=== PATIENT | female | born 1970 | race Caucasian/White ===

== ENCOUNTER → 2019-08-05 | Outpatient (CLI) | payer OTHER | LOC: HYPER 08:41 | DX: N30.41 Irradiation cystitis with hematuria (principal); L59.8 Other specified disorders of the skin and subcutaneous tissue related to radiation; M87.88 Other osteonecrosis, other site; K58.9 Irritable bowel syndrome, unspecified; Z85.41 Personal history of malignant neoplasm of cervix uteri; Y84.2 Radiological procedure and radiotherapy as the cause of abnormal reaction of the patient, or of later complication, without mention of misadventure at the time of the procedure ==

== ENCOUNTER → 2019-08-06 | Outpatient (CLI) | payer OTHER | LOC: HYPER 15:35 | DX: L59.8 Other specified disorders of the skin and subcutaneous tissue related to radiation (principal); N30.41 Irradiation cystitis with hematuria; M87.88 Other osteonecrosis, other site; Z85.41 Personal history of malignant neoplasm of cervix uteri; Z85.89 Personal history of malignant neoplasm of other organs and systems; Y84.2 Radiological procedure and radiotherapy as the cause of abnormal reaction of the patient, or of later complication, without mention of misadventure at the time of the procedure ==

== ENCOUNTER → 2019-08-07 | Outpatient (CLI) | payer OTHER | LOC: HYPER 12:30 | DX: N30.41 Irradiation cystitis with hematuria (principal); L59.8 Other specified disorders of the skin and subcutaneous tissue related to radiation; M87.88 Other osteonecrosis, other site; J45.909 Unspecified asthma, uncomplicated; Z85.89 Personal history of malignant neoplasm of other organs and systems; Z85.41 Personal history of malignant neoplasm of cervix uteri ==

== ENCOUNTER → 2019-08-08 | Outpatient (CLI) | payer OTHER | LOC: HYPER 07:30 | DX: N30.41 Irradiation cystitis with hematuria (principal); L59.8 Other specified disorders of the skin and subcutaneous tissue related to radiation; M87.88 Other osteonecrosis, other site; J45.909 Unspecified asthma, uncomplicated; Z85.41 Personal history of malignant neoplasm of cervix uteri; Z85.89 Personal history of malignant neoplasm of other organs and systems ==

== ENCOUNTER → 2019-08-09 | Outpatient (CLI) | payer OTHER | LOC: HYPER 08:46 | DX: L59.8 Other specified disorders of the skin and subcutaneous tissue related to radiation (principal); N30.41 Irradiation cystitis with hematuria; M87.88 Other osteonecrosis, other site; K58.9 Irritable bowel syndrome, unspecified; Z85.41 Personal history of malignant neoplasm of cervix uteri; Y84.2 Radiological procedure and radiotherapy as the cause of abnormal reaction of the patient, or of later complication, without mention of misadventure at the time of the procedure ==

== ENCOUNTER → 2019-08-13 | Outpatient (CLI) | payer OTHER | LOC: HYPER 07:30 | DX: L59.8 Other specified disorders of the skin and subcutaneous tissue related to radiation (principal); N30.41 Irradiation cystitis with hematuria; Z85.41 Personal history of malignant neoplasm of cervix uteri; Z85.89 Personal history of malignant neoplasm of other organs and systems; Y84.2 Radiological procedure and radiotherapy as the cause of abnormal reaction of the patient, or of later complication, without mention of misadventure at the time of the procedure; M87.88 Other osteonecrosis, other site ==

== ENCOUNTER → 2019-08-14 | Outpatient (CLI) | payer OTHER | LOC: HYPER 15:57 | DX: L59.8 Other specified disorders of the skin and subcutaneous tissue related to radiation (principal); N30.41 Irradiation cystitis with hematuria; M87.88 Other osteonecrosis, other site; Z85.89 Personal history of malignant neoplasm of other organs and systems; Z85.41 Personal history of malignant neoplasm of cervix uteri; Y84.2 Radiological procedure and radiotherapy as the cause of abnormal reaction of the patient, or of later complication, without mention of misadventure at the time of the procedure ==

== ENCOUNTER → 2019-08-15 | Outpatient (CLI) | payer OTHER | LOC: HYPER 10:40 | DX: L59.8 Other specified disorders of the skin and subcutaneous tissue related to radiation (principal); N30.41 Irradiation cystitis with hematuria; M87.88 Other osteonecrosis, other site; Z85.89 Personal history of malignant neoplasm of other organs and systems; Z85.41 Personal history of malignant neoplasm of cervix uteri; Y84.2 Radiological procedure and radiotherapy as the cause of abnormal reaction of the patient, or of later complication, without mention of misadventure at the time of the procedure ==

== ENCOUNTER → 2019-08-16 | Outpatient (CLI) | payer OTHER | LOC: HYPER 08:25 | DX: L59.8 Other specified disorders of the skin and subcutaneous tissue related to radiation (principal); N30.41 Irradiation cystitis with hematuria; K58.9 Irritable bowel syndrome, unspecified; Z85.41 Personal history of malignant neoplasm of cervix uteri; Y84.2 Radiological procedure and radiotherapy as the cause of abnormal reaction of the patient, or of later complication, without mention of misadventure at the time of the procedure ==

== ENCOUNTER → 2019-08-20 | Outpatient (CLI) | payer OTHER | LOC: HYPER 08-19 09:22 | DX: L59.8 Other specified disorders of the skin and subcutaneous tissue related to radiation (principal); N30.41 Irradiation cystitis with hematuria; M87.88 Other osteonecrosis, other site; K58.9 Irritable bowel syndrome, unspecified; Z85.41 Personal history of malignant neoplasm of cervix uteri; Y84.2 Radiological procedure and radiotherapy as the cause of abnormal reaction of the patient, or of later complication, without mention of misadventure at the time of the procedure ==

== ENCOUNTER → 2019-08-21 | Outpatient (CLI) | payer OTHER | LOC: HYPER 11:11 | DX: L59.8 Other specified disorders of the skin and subcutaneous tissue related to radiation (principal); N30.41 Irradiation cystitis with hematuria; M87.88 Other osteonecrosis, other site; Z85.89 Personal history of malignant neoplasm of other organs and systems; Z85.41 Personal history of malignant neoplasm of cervix uteri; Y84.2 Radiological procedure and radiotherapy as the cause of abnormal reaction of the patient, or of later complication, without mention of misadventure at the time of the procedure ==

== ENCOUNTER → 2019-08-22 | Outpatient (CLI) | payer OTHER | LOC: HYPER 08:07 | DX: L59.8 Other specified disorders of the skin and subcutaneous tissue related to radiation (principal); N30.41 Irradiation cystitis with hematuria; M87.88 Other osteonecrosis, other site; Z85.41 Personal history of malignant neoplasm of cervix uteri; Y84.2 Radiological procedure and radiotherapy as the cause of abnormal reaction of the patient, or of later complication, without mention of misadventure at the time of the procedure ==

== ENCOUNTER → 2019-08-23 | Outpatient (CLI) | payer OTHER | LOC: HYPER 08:01 | DX: L59.8 Other specified disorders of the skin and subcutaneous tissue related to radiation (principal); N30.41 Irradiation cystitis with hematuria; M87.88 Other osteonecrosis, other site; Z85.41 Personal history of malignant neoplasm of cervix uteri; Z85.89 Personal history of malignant neoplasm of other organs and systems; Y84.2 Radiological procedure and radiotherapy as the cause of abnormal reaction of the patient, or of later complication, without mention of misadventure at the time of the procedure ==

== ENCOUNTER → 2019-08-26 | Outpatient (CLI) | payer OTHER | LOC: HYPER 07:30 | DX: L59.8 Other specified disorders of the skin and subcutaneous tissue related to radiation (principal); N30.41 Irradiation cystitis with hematuria; M87.88 Other osteonecrosis, other site; Z85.89 Personal history of malignant neoplasm of other organs and systems; Z85.41 Personal history of malignant neoplasm of cervix uteri; Y84.2 Radiological procedure and radiotherapy as the cause of abnormal reaction of the patient, or of later complication, without mention of misadventure at the time of the procedure ==

== ENCOUNTER → 2019-08-27 | Outpatient (CLI) | payer OTHER | LOC: HYPER 08:30 | DX: L59.8 Other specified disorders of the skin and subcutaneous tissue related to radiation (principal); N30.41 Irradiation cystitis with hematuria; M87.88 Other osteonecrosis, other site; Z85.89 Personal history of malignant neoplasm of other organs and systems; Z85.41 Personal history of malignant neoplasm of cervix uteri; Y84.2 Radiological procedure and radiotherapy as the cause of abnormal reaction of the patient, or of later complication, without mention of misadventure at the time of the procedure ==

== ENCOUNTER → 2019-08-28 | Outpatient (CLI) | payer OTHER | LOC: HYPER 08:57 | DX: L59.8 Other specified disorders of the skin and subcutaneous tissue related to radiation (principal); N30.41 Irradiation cystitis with hematuria; M87.88 Other osteonecrosis, other site; Z85.41 Personal history of malignant neoplasm of cervix uteri; Y84.2 Radiological procedure and radiotherapy as the cause of abnormal reaction of the patient, or of later complication, without mention of misadventure at the time of the procedure ==

== ENCOUNTER → 2019-08-29 | Outpatient (CLI) | payer OTHER | LOC: HYPER 10:24 | DX: N30.41 Irradiation cystitis with hematuria (principal); L59.8 Other specified disorders of the skin and subcutaneous tissue related to radiation; M87.88 Other osteonecrosis, other site; K58.9 Irritable bowel syndrome, unspecified; Z85.41 Personal history of malignant neoplasm of cervix uteri ==

== ENCOUNTER → 2019-08-30 | Outpatient (CLI) | payer OTHER | LOC: HYPER 08:07 | DX: L59.8 Other specified disorders of the skin and subcutaneous tissue related to radiation (principal); N30.41 Irradiation cystitis with hematuria; M87.88 Other osteonecrosis, other site; Z85.89 Personal history of malignant neoplasm of other organs and systems; Z85.41 Personal history of malignant neoplasm of cervix uteri; Y84.2 Radiological procedure and radiotherapy as the cause of abnormal reaction of the patient, or of later complication, without mention of misadventure at the time of the procedure ==

== ENCOUNTER → 2019-09-02 | Outpatient (CLI) | payer OTHER | LOC: HYPER 09:09 | DX: L59.8 Other specified disorders of the skin and subcutaneous tissue related to radiation (principal); N30.41 Irradiation cystitis with hematuria; M87.88 Other osteonecrosis, other site; Z85.41 Personal history of malignant neoplasm of cervix uteri; Y84.2 Radiological procedure and radiotherapy as the cause of abnormal reaction of the patient, or of later complication, without mention of misadventure at the time of the procedure ==

== ENCOUNTER → 2019-09-03 | Outpatient (CLI) | payer OTHER | LOC: HYPER 13:35 | DX: L59.8 Other specified disorders of the skin and subcutaneous tissue related to radiation (principal); N30.41 Irradiation cystitis with hematuria; M87.88 Other osteonecrosis, other site; Z85.41 Personal history of malignant neoplasm of cervix uteri; Y84.2 Radiological procedure and radiotherapy as the cause of abnormal reaction of the patient, or of later complication, without mention of misadventure at the time of the procedure ==

== ENCOUNTER → 2019-09-04 | Outpatient (CLI) | payer OTHER | LOC: HYPER 08:55 | DX: L59.8 Other specified disorders of the skin and subcutaneous tissue related to radiation (principal); N30.41 Irradiation cystitis with hematuria; M87.88 Other osteonecrosis, other site; Z85.89 Personal history of malignant neoplasm of other organs and systems; Z85.41 Personal history of malignant neoplasm of cervix uteri; Y84.2 Radiological procedure and radiotherapy as the cause of abnormal reaction of the patient, or of later complication, without mention of misadventure at the time of the procedure ==

== ENCOUNTER → 2019-09-05 | Outpatient (CLI) | payer OTHER | LOC: HYPER 07:59 | DX: L59.8 Other specified disorders of the skin and subcutaneous tissue related to radiation (principal); N30.41 Irradiation cystitis with hematuria; M87.88 Other osteonecrosis, other site; Z85.89 Personal history of malignant neoplasm of other organs and systems; Z85.41 Personal history of malignant neoplasm of cervix uteri; Y84.2 Radiological procedure and radiotherapy as the cause of abnormal reaction of the patient, or of later complication, without mention of misadventure at the time of the procedure ==

== ENCOUNTER → 2019-09-06 | Outpatient (CLI) | payer OTHER | LOC: HYPER 08:19 | DX: L59.8 Other specified disorders of the skin and subcutaneous tissue related to radiation (principal); N30.41 Irradiation cystitis with hematuria; M87.88 Other osteonecrosis, other site; Z85.89 Personal history of malignant neoplasm of other organs and systems; Z85.41 Personal history of malignant neoplasm of cervix uteri; Y84.2 Radiological procedure and radiotherapy as the cause of abnormal reaction of the patient, or of later complication, without mention of misadventure at the time of the procedure ==

== ENCOUNTER → 2019-09-09 | Outpatient (CLI) | payer OTHER | LOC: HYPER 08:14 | DX: L59.8 Other specified disorders of the skin and subcutaneous tissue related to radiation (principal); N30.41 Irradiation cystitis with hematuria; M87.88 Other osteonecrosis, other site; Z85.89 Personal history of malignant neoplasm of other organs and systems; Z85.41 Personal history of malignant neoplasm of cervix uteri; Y84.2 Radiological procedure and radiotherapy as the cause of abnormal reaction of the patient, or of later complication, without mention of misadventure at the time of the procedure ==

== ENCOUNTER → 2019-09-11 | Outpatient (CLI) | payer OTHER | LOC: HYPER 09:02 | DX: L59.8 Other specified disorders of the skin and subcutaneous tissue related to radiation (principal); N30.41 Irradiation cystitis with hematuria; M87.88 Other osteonecrosis, other site; Z85.89 Personal history of malignant neoplasm of other organs and systems; Z85.41 Personal history of malignant neoplasm of cervix uteri; Y84.2 Radiological procedure and radiotherapy as the cause of abnormal reaction of the patient, or of later complication, without mention of misadventure at the time of the procedure ==

== ENCOUNTER → 2019-09-12 | Outpatient (CLI) | payer OTHER | LOC: HYPER 10:33 | DX: L59.8 Other specified disorders of the skin and subcutaneous tissue related to radiation (principal); N30.41 Irradiation cystitis with hematuria; M87.88 Other osteonecrosis, other site; K58.9 Irritable bowel syndrome, unspecified; Z85.41 Personal history of malignant neoplasm of cervix uteri; Y84.2 Radiological procedure and radiotherapy as the cause of abnormal reaction of the patient, or of later complication, without mention of misadventure at the time of the procedure ==

== ENCOUNTER → 2019-09-13 | Outpatient (CLI) | payer OTHER | LOC: HYPER 07:30 | DX: L59.8 Other specified disorders of the skin and subcutaneous tissue related to radiation (principal); N30.41 Irradiation cystitis with hematuria; E66.01 Morbid (severe) obesity due to excess calories; M87.88 Other osteonecrosis, other site; Z68.28 Body mass index [BMI] 28.0-28.9, adult; Z85.89 Personal history of malignant neoplasm of other organs and systems; Z85.41 Personal history of malignant neoplasm of cervix uteri; Y84.2 Radiological procedure and radiotherapy as the cause of abnormal reaction of the patient, or of later complication, without mention of misadventure at the time of the procedure ==

== ENCOUNTER → 2019-09-17 | Outpatient (CLI) | payer OTHER | LOC: HYPER 09:08 | DX: L59.8 Other specified disorders of the skin and subcutaneous tissue related to radiation (principal); N30.41 Irradiation cystitis with hematuria; M87.88 Other osteonecrosis, other site; Z85.41 Personal history of malignant neoplasm of cervix uteri; Y84.2 Radiological procedure and radiotherapy as the cause of abnormal reaction of the patient, or of later complication, without mention of misadventure at the time of the procedure ==

== ENCOUNTER → 2019-09-18 | Outpatient (CLI) | payer OTHER | LOC: HYPER 08:28 | DX: L59.8 Other specified disorders of the skin and subcutaneous tissue related to radiation (principal); N30.41 Irradiation cystitis with hematuria; M87.88 Other osteonecrosis, other site; K58.9 Irritable bowel syndrome, unspecified; Z85.41 Personal history of malignant neoplasm of cervix uteri; Y84.2 Radiological procedure and radiotherapy as the cause of abnormal reaction of the patient, or of later complication, without mention of misadventure at the time of the procedure ==

== ENCOUNTER → 2019-09-19 | Outpatient (CLI) | payer OTHER | LOC: HYPER 08:05 | DX: L59.8 Other specified disorders of the skin and subcutaneous tissue related to radiation (principal); N30.41 Irradiation cystitis with hematuria; M87.88 Other osteonecrosis, other site; K58.9 Irritable bowel syndrome, unspecified; Z85.41 Personal history of malignant neoplasm of cervix uteri; Y84.2 Radiological procedure and radiotherapy as the cause of abnormal reaction of the patient, or of later complication, without mention of misadventure at the time of the procedure ==

== ENCOUNTER → 2019-09-20 | Outpatient (CLI) | payer OTHER | LOC: HYPER 08:18 | DX: L59.8 Other specified disorders of the skin and subcutaneous tissue related to radiation (principal); N30.41 Irradiation cystitis with hematuria; M87.88 Other osteonecrosis, other site; K58.9 Irritable bowel syndrome, unspecified; Z85.41 Personal history of malignant neoplasm of cervix uteri; Y84.2 Radiological procedure and radiotherapy as the cause of abnormal reaction of the patient, or of later complication, without mention of misadventure at the time of the procedure ==

== ENCOUNTER → 2019-09-23 | Outpatient (CLI) | payer OTHER | LOC: HYPER 08:22 | DX: L59.8 Other specified disorders of the skin and subcutaneous tissue related to radiation (principal); N30.41 Irradiation cystitis with hematuria; M87.88 Other osteonecrosis, other site; Z85.89 Personal history of malignant neoplasm of other organs and systems; Z85.41 Personal history of malignant neoplasm of cervix uteri; Y84.2 Radiological procedure and radiotherapy as the cause of abnormal reaction of the patient, or of later complication, without mention of misadventure at the time of the procedure ==

== ENCOUNTER → 2019-09-24 | Outpatient (CLI) | payer OTHER | LOC: HYPER 08:54 | DX: L59.8 Other specified disorders of the skin and subcutaneous tissue related to radiation (principal); N30.41 Irradiation cystitis with hematuria; M87.88 Other osteonecrosis, other site; K58.9 Irritable bowel syndrome, unspecified; Z85.41 Personal history of malignant neoplasm of cervix uteri; Y84.2 Radiological procedure and radiotherapy as the cause of abnormal reaction of the patient, or of later complication, without mention of misadventure at the time of the procedure ==

== ENCOUNTER → 2019-09-25 | Outpatient (CLI) | payer OTHER | LOC: HYPER 08:24 | DX: L59.8 Other specified disorders of the skin and subcutaneous tissue related to radiation (principal); N30.41 Irradiation cystitis with hematuria; M87.88 Other osteonecrosis, other site; K58.9 Irritable bowel syndrome, unspecified; Z85.41 Personal history of malignant neoplasm of cervix uteri; Y84.2 Radiological procedure and radiotherapy as the cause of abnormal reaction of the patient, or of later complication, without mention of misadventure at the time of the procedure ==

== ENCOUNTER → 2019-09-26 | Outpatient (CLI) | payer OTHER | LOC: HYPER 09:41 | DX: L59.8 Other specified disorders of the skin and subcutaneous tissue related to radiation (principal); N30.41 Irradiation cystitis with hematuria; M87.88 Other osteonecrosis, other site; K58.9 Irritable bowel syndrome, unspecified; Z85.41 Personal history of malignant neoplasm of cervix uteri; Y84.2 Radiological procedure and radiotherapy as the cause of abnormal reaction of the patient, or of later complication, without mention of misadventure at the time of the procedure ==

== ENCOUNTER → 2019-09-27 | Outpatient (CLI) | payer OTHER | LOC: HYPER 09:40 | DX: L59.8 Other specified disorders of the skin and subcutaneous tissue related to radiation (principal); N30.41 Irradiation cystitis with hematuria; M87.88 Other osteonecrosis, other site; K58.9 Irritable bowel syndrome, unspecified; Z85.41 Personal history of malignant neoplasm of cervix uteri; Y84.2 Radiological procedure and radiotherapy as the cause of abnormal reaction of the patient, or of later complication, without mention of misadventure at the time of the procedure ==

== ENCOUNTER → 2019-09-30 | Outpatient (CLI) | payer OTHER | LOC: HYPER 08:51 | DX: N30.41 Irradiation cystitis with hematuria (principal); L59.8 Other specified disorders of the skin and subcutaneous tissue related to radiation; K58.9 Irritable bowel syndrome, unspecified; Z85.41 Personal history of malignant neoplasm of cervix uteri; Z85.89 Personal history of malignant neoplasm of other organs and systems ==

== ENCOUNTER → 2019-10-01 | Outpatient (CLI) | payer OTHER | LOC: HYPER 07:57 | DX: L59.8 Other specified disorders of the skin and subcutaneous tissue related to radiation (principal); N30.41 Irradiation cystitis with hematuria; M87.88 Other osteonecrosis, other site; Z85.89 Personal history of malignant neoplasm of other organs and systems; Z85.41 Personal history of malignant neoplasm of cervix uteri; Y84.2 Radiological procedure and radiotherapy as the cause of abnormal reaction of the patient, or of later complication, without mention of misadventure at the time of the procedure ==